=== PATIENT | female | born 1960 | race Caucasian/White ===

== ENCOUNTER 2023-09-18 11:55 | Emergency (ER) | payer MEDICARE ==
[2023-09-18 13:53] LABS: BASOPHILS ABSOLUTE AUTO 0.03 K/uL (0.00-0.10); BASOPHILS PERCENT AUTO 0.3 % (0.1-1.3); EOSINOPHILS ABSOLUTE AUTO 0.09 K/uL (0.00-0.40); EOSINOPHILS PERCENT AUTO 0.9 % (0.0-5.4); HEMATOCRIT 49.5 % (34.3-46.0); IMMATURE GRAN ABSOLUTE AUTO 0.04 K/uL (0.00-0.23); IMMATURE GRAN PERCENT AUTO 0.4 % (0.0-0.7); LYMPHOCYTES ABSOLUTE AUTO 1.49 K/uL (0.8-3.3); LYMPHOCYTES PERCENT AUTO 15.4 % (11.4-47.7); MEAN CORPUSCULAR HEMOGLOBIN 29.9 pg (31.6-35.5); MEAN CORPUSCULAR HGB CONC 34.3 g/dL (31.6-35.5); MONOCYTES ABSOLUTE AUTO 1.02 K/uL (0.20-0.90); MONOCYTES PERCENT AUTO 10.6 % (3.3-12.6); NEUTROPHILS ABSOLUTE AUTO 6.99 K/uL (1.0-7.6); NEUTROPHILS PERCENT AUTO 72.4 % (40.0-78.1); PLATELET COUNT,PLT 185 K/uL (130-375); RED BLOOD CELL COUNT 5.69 M/uL (3.77-5.24); WHITE BLOOD CELL COUNT,WBC 9.7 K/uL (3.2-11.0)
[2023-09-18 14:19] LABS: ALANINE AMINOTRANSFERASE,ALT 33 U/L (12-78); ALBUMIN 3.5 g/dL (3.4-5.0); ALKALINE PHOSPHATASE 100 U/L (46-116); ANION GAP 11.1 mmol/L (5.0-14.0); ASPARTATE AMNIOTRANSFERASE,AST 20 U/L (15-37); BILIRUBIN TOTAL 0.7 mg/dL (0.2-1.0); BLOOD UREA NITROGEN,BUN 16 mg/dL (7-18); CALCIUM 8.9 mg/dL (8.5-10.1); CARBON DIOXIDE,CO2 30 mmol/L (21-32); CHLORIDE,CL 100 mmol/L (100-108); EST CRCL DRUG DOSING (CG) 55.27 mL/min; ESTIMATED GFR 63 mL/min (>60); GLUCOSE RANDOM 107 mg/dL (74-106); POTASSIUM,K 4.1 mmol/L (3.6-5.2); SODIUM,NA 137 mmol/L (140-148); TROPONIN I HIGH SENSITIVITY 6.8 pg/mL (<=60.3)
[2023-09-18 14:24] LABS: C-REACTIVE PROTEIN 0.77 mg/dL (<0.50)
[2023-09-18] MEDS: Sodium Chloride 0.9% 80 ML IV SCH (15:01)
[2023-09-18] MEDS: Iopamidol 755 Mg/ML 100 ML Bottle IV SCH (15:01)
[2023-09-18] MEDS: Furosemide 20 MG/2 ML VIAL IVPUSH ONE (16:56)
== END 2023-09-18 17:25 | disposition home or self-care (01) ==
LOC: JP.ED 11:55
DX: J21.9 Acute bronchiolitis, unspecified (principal); I25.10 Atherosclerotic heart disease of native coronary artery without angina pectoris; R60.0 Localized edema; I10 Essential (primary) hypertension; E78.00 Pure hypercholesterolemia, unspecified; F17.210 Nicotine dependence, cigarettes, uncomplicated; Z79.51 Long term (current) use of inhaled steroids; Z79.899 Other long term (current) drug therapy
CPT/HCPCS: 36415; 71045; 71275; 80053; 83880; 84484; 85025; 85379; 86140; 93005; 96374; 99285; J1940; J3490; Q9967

== ENCOUNTER 2023-09-21 19:10 | Inpatient (IN) | payer MEDICARE ==
[2023-09-21] MEDS: Albuterol/Ipratropium 3.0-0.5 MG/3 ML Neb Soln NEB ONE (20:02)
[2023-09-21 20:03] LABS: BASOPHILS ABSOLUTE AUTO 0.03 K/uL (0.00-0.10); BASOPHILS PERCENT AUTO 0.4 % (0.1-1.3); EOSINOPHILS ABSOLUTE AUTO 0.13 K/uL (0.00-0.40); EOSINOPHILS PERCENT AUTO 1.6 % (0.0-5.4); HEMATOCRIT 47.5 % (34.3-46.0); HEMOGLOBIN 16.2 g/dL (11.2-15.5); IMMATURE GRAN PERCENT AUTO 0.2 % (0.0-0.7); LYMPHOCYTES ABSOLUTE AUTO 1.04 K/uL (0.8-3.3); LYMPHOCYTES PERCENT AUTO 12.8 % (11.4-47.7); MEAN CORPUSCULAR HGB CONC 34.1 g/dL (31.6-35.5); MONOCYTES ABSOLUTE AUTO 0.93 K/uL (0.20-0.90); MONOCYTES PERCENT AUTO 11.5 % (3.3-12.6); NEUTROPHILS ABSOLUTE AUTO 5.96 K/uL (1.0-7.6); NEUTROPHILS PERCENT AUTO 73.5 % (40.0-78.1); PLATELET COUNT,PLT 165 K/uL (130-375); WHITE BLOOD CELL COUNT,WBC 8.1 K/uL (3.2-11.0)
[2023-09-21] MEDS: methylPREDNISolone Sodium Succinate 125 MG/2 ML SDV IVPUSH ONE (20:03)
[2023-09-21 20:04] LABS: IMMATURE GRAN ABSOLUTE AUTO 0.02 K/uL (0.00-0.23)
[2023-09-21 20:05] LABS: BASE EXCESS ARTERIAL 2.9 mm/L; BICARBONATE,ARTERIAL 30.9 mmol/L (22.0-26.0); CARBOXYHEMOGLOBIN 8.2 % (0.0-1.6); METHEMOGLOBIN 1.1 %; OXYHEMOGLOBIN 84.4 %; PCO2 ARTERIAL 62.7 mmHg (35.0-42.0); TOTAL HEMOGLOBIN 16.4 g/dL (12.0-16.0)
[2023-09-21 20:26] LABS: CORONAVIRUS COVID-19 NAA NEGATIVE (NEGATIVE); INFLUENZA A NAA NEGATIVE (NEGATIVE); INFLUENZA B NAA NEGATIVE (NEGATIVE); RESPIRATORY SYNCYTIAL VIR NAA NEGATIVE (NEGATIVE)
[2023-09-21] MEDS: Nicotine 21 MG/24 Hr Patch TRDERM SCH (21:22)
[2023-09-21] MEDS ORDERED: Ondansetron 4 MG/2 ML SDV IV PRN (21:44)
[2023-09-21] MEDS ORDERED: Sennosides/Docusate Sodium 50-8.6 MG Tab PO PRN (21:44)
[2023-09-21] MEDS: Diazepam 5 MG Tab PO SCH (22:19)
[2023-09-21] MEDS: Piperacillin/Tazobactam 4.5 GM in Sodium Chloride 0.9% 100 ML IV ONE (22:20)
[2023-09-21] MEDS: Polymyxin B/Trimethoprim 10 ML Bottle EYEBOTH SCH (22:20)
[2023-09-21] MEDS: Albuterol 0.083% 2.5 MG/3 ML Neb Soln NEB PRN (23:22)
[2023-09-22] MEDS: Benzonatate 100 MG Cap PO PRN
[2023-09-22] MEDS: methylPREDNISolone Sodium Succinate 125 MG/2 ML SDV IVPUSH SCH (01:19)
[2023-09-22] MEDS: Piperacillin/Tazobactam 4.5 GM in Sodium Chloride 0.9% 100 ML IV SCH (01:20)
[2023-09-22] MEDS: Melatonin 3 MG Tab PO PRN (01:41)
[2023-09-22] MEDS: Acetaminophen 325 MG Tab PO PRN (01:44)
[2023-09-22] MEDS: Calcium Carbonate 500 MG Tab.Chew PO PRN (03:46)
[2023-09-22 05:07] LABS: HEMATOCRIT 51.2 % (34.3-46.0); HEMOGLOBIN 16.9 g/dL (11.2-15.5); MEAN CORPUSCULAR HEMOGLOBIN 29.4 pg (31.6-35.5); RED BLOOD CELL COUNT 5.75 M/uL (3.77-5.24); WHITE BLOOD CELL COUNT,WBC 10.1 K/uL (3.2-11.0)
[2023-09-22 05:18] LABS: CREATININE 1.2 mg/dL (0.6-1.0); EST CRCL DRUG DOSING (CG) 46.06 mL/min; POTASSIUM,K 4.8 mmol/L (3.6-5.2)
[2023-09-22 05:21] LABS: ANION GAP 11.8 mmol/L (5.0-14.0)
[2023-09-22] MEDS: Albuterol/Ipratropium 3.0-0.5 MG/3 ML Neb Soln NEB SCH (06:09)
[2023-09-22] MEDS: Lisinopril 20 MG Tab PO SCH (08:20)
[2023-09-22] MEDS: Lactobacillus Rhamnosus GG (Probiotic) Cap PO SCH (08:21)
[2023-09-22] MEDS: Metoprolol Succinate 50 MG Tab.ER PO SCH (08:21)
[2023-09-22] MEDS: Hydrochlorothiazide 12.5 MG Cap PO SCH (08:22)
[2023-09-22] MEDS: Pantoprazole 40 MG Tab.CR PO SCH (08:22)
[2023-09-22] MEDS: Citalopram 20 MG Tab PO SCH (08:22)
[2023-09-22] MEDS: busPIRone 5 MG Tab PO SCH (08:22)
[2023-09-22] MEDS: amLODIPine 5 MG Tab PO SCH (08:22)
[2023-09-22] MEDS: Rosuvastatin 10 MG Tab PO SCH (08:22)
[2023-09-22] MEDS: Azithromycin 500 MG in Sodium Chloride 0.9% 250 ML IV SCH (09:04)
[2023-09-22] MEDS: Piperacillin/Tazobactam/Dext 4.5 GM in Premix Bag 1 BAG IV SCH (10:17)
[2023-09-22] MEDS: Nicotine 21 MG/24 Hr Patch TRDERM SCH (20:53)
[2023-09-22] MEDS: Diazepam 5 MG Tab PO SCH (20:58)
[2023-09-22] MEDS: Ondansetron 4 MG Tab.DIS PO PRN (22:22)
[2023-09-23 05:29] LABS: HEMOGLOBIN 15.7 g/dL (11.2-15.5); MEAN CORPUSCULAR HEMOGLOBIN 29.5 pg (31.6-35.5); MEAN CORPUSCULAR VOLUME 92.1 fL (81.4-99.0); RED BLOOD CELL COUNT 5.32 M/uL (3.77-5.24); WHITE BLOOD CELL COUNT,WBC 14.7 K/uL (3.2-11.0)
[2023-09-23 05:48] LABS: CALCIUM 9.2 mg/dL (8.5-10.1); CREATININE 1.1 mg/dL (0.6-1.0); EST CRCL DRUG DOSING (CG) 50.11 mL/min; POTASSIUM,K 5.2 mmol/L (3.6-5.2)
[2023-09-23 05:49] LABS: ANION GAP 9.2 mmol/L (5.0-14.0)
[2023-09-23 09:06] LABS: BASE EXCESS ARTERIAL 13 mm/L; PO2 ARTERIAL 70.3 mmHg (75.0-100.0)
[2023-09-23] MEDS ORDERED: Propofol 200 MG/20 ML SDV ONE (09:48)
[2023-09-23] MEDS: Sodium Chloride 0.9% 1,000 ML IV ONE (09:53)
[2023-09-23] MEDS: propofoL 100 ML IV SCH (09:53)
[2023-09-23] MEDS: Heparin Sodium/D5W 500 ML ONE (10:29)
[2023-09-23] MEDS: propofoL 100 ML ONE (10:36)
[2023-09-23] MEDS: Heparin Sodium 5,000 Units/ML Vial ONE (10:36)
[2023-09-23] MEDS: predniSONE 20 MG Tab PO SCH (10:45)
[2023-09-23] MEDS: Heparin Sodium 5,000 UNITS in Sodium Chloride 0.9% 500 ML IV SCH (10:50)
[2023-09-23] MEDS: Sodium Chloride 0.9% 1,000 ML IV SCH (11:00)
[2023-09-23 11:20] LABS: HEMATOCRIT,ISTAT 40 % (36-48); POTASSIUM,ISTAT 4.9 mmol/L (3.5-4.9); SODIUM,ISTAT 136 mmol/L (140-148)
[2023-09-23 11:21] LABS: ALLEN TEST, ISTAT A-LINE; BASE EXCESS ARTERIAL,ISTAT 6 mmol/L (-2-3); HCO3 ARTERIAL,ISTAT 32.9 mmol/L (22.0-26.0); O2 SATURATION ARTERIAL,ISTAT 94 % (95-98); PCO2 ARTERIAL,ISTAT 69 mmHG (35-45); PH ARTERIAL,ISTAT 7.29 (7.35-7.45); PO2 ARTERIAL,ISTAT 82 mmHg (80-105); TCO2 ARTERIAL,ISTAT 35 mmol/L (23-27)
[2023-09-23] MEDS: Norepinephrine Bit/D5W Premix 4 MG in Premix Bag 1 BAG IV SCH (11:27)
[2023-09-23] MEDS: Norepinephrine Bit/D5W Premix 250 ML ONE (11:29)
[2023-09-23 11:34] LABS: CALCIUM 8.4 mg/dL (8.5-10.1); CREATININE 1.3 mg/dL (0.6-1.0); EST CRCL DRUG DOSING (CG) 42.4 mL/min; POTASSIUM,K 5.1 mmol/L (3.6-5.2); TROPONIN I HIGH SENSITIVITY 7.4 pg/mL (<=60.3)
[2023-09-23 11:42] LABS: ANION GAP 7.1 mmol/L (5.0-14.0)
[2023-09-23] MEDS ORDERED: fentaNYL 1,000 MCG in Sodium Chloride 0.9% 80 ML IV SCH (13:00)
[2023-09-23] MEDS: methylPREDNISolone Sodium Succinate 40 MG/1 ML SDV IVPUSH SCH (13:31)
[2023-09-23] MEDS: Pantoprazole 40 MG Vial IVPUSH SCH (13:31)
[2023-09-23] MEDS: fentaNYL 1,000 MCG in Sodium Chloride 0.9% 80 ML IV SCH (13:37)
== END 2023-09-23 14:55 | DRG 208 ==
LOC: JP.ED 19:10 → JP.MS 21:15 → JP.ICU 09-22 09:45
PROVIDERS: ADMIT Registered Nurse; ATTEND Hospitalist
PROC: 03HY32Z Insertion of Monitoring Device into Upper Artery, Percutaneous Approach (ICD-10-PCS; 2023-09-21)
PROC: 5A09457 Assistance with Respiratory Ventilation, 24-96 Consecutive Hours, Continuous Positive Airway Pressure (ICD-10-PCS; 2023-09-22)
PROC: 5A1935Z Respiratory Ventilation, Less than 24 Consecutive Hours (ICD-10-PCS; principal; 2023-09-23)
PROC: 0BH17EZ Insertion of Endotracheal Airway into Trachea, Via Natural or Artificial Opening (ICD-10-PCS; 2023-09-23)
PROC: 4A133B1 Monitoring of Arterial Pressure, Peripheral, Percutaneous Approach (ICD-10-PCS; 2023-09-23)
PROC: 4A133J1 Monitoring of Arterial Pulse, Peripheral, Percutaneous Approach (ICD-10-PCS; 2023-09-23)
PROC: 4A133R1 Monitoring of Arterial Saturation, Peripheral, Percutaneous Approach (ICD-10-PCS; 2023-09-23)
DX: J69.0 Pneumonitis due to inhalation of food and vomit (principal); J96.21 Acute and chronic respiratory failure with hypoxia; J96.22 Acute and chronic respiratory failure with hypercapnia; F03.94 Unspecified dementia, unspecified severity, with anxiety; J44.0 Chronic obstructive pulmonary disease with (acute) lower respiratory infection; J44.1 Chronic obstructive pulmonary disease with (acute) exacerbation; J18.9 Pneumonia, unspecified organism; F17.210 Nicotine dependence, cigarettes, uncomplicated; I10 Essential (primary) hypertension; I25.10 Atherosclerotic heart disease of native coronary artery without angina pectoris; I70.90 Unspecified atherosclerosis; E66.9 Obesity, unspecified; I95.81 Postprocedural hypotension; Z79.51 Long term (current) use of inhaled steroids; E78.00 Pure hypercholesterolemia, unspecified; Z90.89 Acquired absence of other organs; Z90.722 Acquired absence of ovaries, bilateral; Z98.890 Other specified postprocedural states; Z68.37 Body mass index [BMI] 37.0-37.9, adult; Z79.899 Other long term (current) drug therapy
CPT/HCPCS: 0241U; 31500; 36415; 36600; 36620; 51702; 71045; 71046; 80048; 82803; 84145; 84484; 85025; 85027; 87070; 87077; 87205; 94002; 94640; 94660; 96374; 99222; 99232; 99238; 99285; A9270-GY; J0456; J1644; J2470; J2543; J2704; J2919; J3010; J3490; J7030; J7040; J7050; J7620; Q0162